=== PATIENT | male | born 2005 | race Caucasian/White ===

== ENCOUNTER 2023-01-05 09:52 | Emergency (ER) | payer MEDICAID, OTHER ==
[~2023-01-05] VITALS: Ht 165.1 cm; Wt 170.0 kg
[2023-01-05 10:00] VITALS: BP 136/76
[2023-01-05] MEDS ORDERED: TOLN108P2 TP (10:52)
[2023-01-05] MEDS ORDERED: ALUM1GRA MC (10:52)
[2023-01-05] MEDS ORDERED: TOLNAFTATE 1% CREAM 15GM TOP SCH (21:00)
== END 2023-01-05 11:42 | disposition home or self-care (01) ==
LOC: ER 09:52
DX: B35.3 Tinea pedis (principal)
CPT/HCPCS: 99282

== ENCOUNTER 2024-08-30 18:28 | Emergency (ER) | payer MEDICAID, OTHER ==
[~2024-08-30] VITALS: Ht 165.1 cm; Wt 91.0 kg
[~2024-08-30 18:28] MED LIST: ALUM1GRA MC; TOLN108P2 TP
[2024-08-30 18:31] VITALS: O2SAT 100
[2024-08-30 21:36] LABS: BASOPHILS % 0.6 % (0.0-2.0); DIFFERENTIAL COMMENT 0; EOSINOPHILS % 2.6 % (0.0-5.0); HEMATOCRIT. 41.7 % (42.0-52.0); HEMOGLOBIN. 13.6 g/dL (14.0-18.0); LYMPHOCYTES % 15.1 % (20.0-50.0); MEAN CORPUSCULAR HEMOGLOBIN 24.9 pg (28.0-32.0); MEAN CORPUSCULAR HGB CONC 32.7 g/dL (31.0-37.0); MEAN CORPUSCULAR VOLUME 76.1 fL (80.0-94.0); MEAN PLATELET VOLUME 8.1 fl (7.4-10.4); MONOCYTES % 5.8 % (2.0-8.0); NEUTROPHILS % 75.9 % (40.0-76.0); PLATELET 360 x1000/uL (130-400); RED BLOOD CELL COUNT 5.48 mill/uL (4.7-6.1); RED CELL DISTRIBUTION WIDTH 17.3 % (11.6-14.6); WHITE BLOOD COUNT 12.8 x1000/uL (4.5-11.0)
[2024-08-30 21:40] LABS: CHLORIDE 104 mEq/L (98-107); POTASSIUM 3.8 mEq/L (3.5-5.1); SODIUM 140 mEq/L (136-145)
[2024-08-30 21:41] LABS: CALCIUM 9.5 mg/dL (8.7-10.4); CARBON DIOXIDE 29 mEq/L (21-32)
[2024-08-30 21:46] LABS: CREATININE 0.9 mg/dL (0.6-1.3); GLUCOSE 97 mg/dL (70-105); UREA NITROGEN BLOOD 8 mg/dL (9-23)
[2024-08-30 21:50] LABS: TROPONIN I HIGH SENSITIVITY < 4 ng/L (3.0-53)
[2024-08-30] MEDS ORDERED: FAMO-135 MT (21:58)
[2024-08-30] MEDS: FAMOTIDINE 20MG TABLET PO ONE (22:01)
[2024-08-30 22:05] VITALS: BP 148/77; PULSE 89; RESP 20; TEMP 36.83628; O2SAT 100
== END 2024-08-30 22:06 | disposition home or self-care (01) ==
LOC: ER 18:28
DX: R07.89 Other chest pain (principal)
CPT/HCPCS: 36415; 71045; 80048; 84484; 85025; 93005; 99285